=== PATIENT | male | born 1960 | race Caucasian/White ===

== ENCOUNTER 2021-05-31 15:09 | Day surgery (SDCO) | payer OTHER ==
[~2021-05-31] VITALS: Ht 172.7 cm; Wt 109.3 kg
[~2021-05-31 15:09] MED LIST: BLOOD PRESSURE1 EACH XX; CELEBREX **OUT100 MG PO; COREG12.5 MG PO; CRESTOR40 MG PO; CYCLOBENZAPRINE10 MG PO; CYMBALTA 30MG C30 MG PO; FLOMAX0.4 MG PO; GABAPENTIN600 MG PO; HYDROCHLOROTHIA25 MG PO; HYDROXYCHLOROQ200 MG PO; JANUMET 50-1,01 EACH PO; JANUVIA50 MG PO; MICRONASE PO; MICRONASE5 MG PO; NARCAN4 MG; NARCAN4 MG INH; NEXIUM20 MG PO; NORVASC10 MG PO; OXYCODON-ACETA1 EAC1 PO; OXYCODONE-ACET1 EAC1 PO; OXYCODONE-ACET1 EACH PO; PERCOCET 10-321 EACH PO; PLAVIX75 MG PO; PREDNISONE 20MG20 MG PO; TIZANIDINE HCL2 MG PO; TOPROL XL 25MG25 MG PO; UROCIT-K10 MEQ PO; VITAMIN B-121000 MC1 PO; VITAMIN C1000 M2 PO; VITAMIN D-32000 UNIT PO; VITAMIN E200 UNIT PO; VOLTAREN100 GM TOP; ZESTRIL5 MG PO
[2021-05-31 15:43] LABS: BASOPHIL 0.8 % (0-2); EOSINOPHIL 2.7 % (0-5); HGB 14.6 g/dl (13.2-18.0); LYMPHOCYTE 41.4 % (15-48); MCH 32.1 pg (25.0-31.0); MCV 94.5 fL (78.0-100.0); MONOCYTE 11.5 % (0-12); MPV 9.5 fL (6.0-9.5); NEUTROPHIL 43.6 % (41-80); NRBC 0; PLT 223 K/uL (150-400); RBC 4.55 M/uL (4.70-6.00); RDW 12.6 % (11.5-14.0); WBC 2.6 K/uL (4.0-10.5)
[2021-05-31 15:54] LABS: ALBUMIN 3.9 g/dL (3.4-5.0); BILIRUBIN - TOTAL 0.6 mg/dL (0.2-1.0); BUN/CREAT RATIO (CALC) 11.9 RATIO; CREATININE 1.09 mg/dL (0.67-1.17); POTASSIUM 4.2 mmol/L (3.5-5.1); TOTAL PROTEIN 6.9 g/dL (6.4-8.2)
[2021-05-31 16:32] LABS: CORONAVIRUS 2019 SARS-COV-2 NEGATIVE (NEGATIVE); INFLUENZA A NAA NEGATIVE (NEGATIVE)
[2021-05-31 19:23] LABS: BILIRUBIN 1+ mg/dL (NEGATIVE); BLOOD NEGATIVE Ery/uL (NEGATIVE); CLARITY CLEAR (CLEAR); COLOR YELLOW (YELLOW); GLUCOSE (U) 2+ mg/dL (NORMAL); LEUKOCYTES NEGATIVE Leu/uL (NEGATIVE); NITRITE NEGATIVE (NEGATIVE); PROTEIN TRACE (LOW) mg/dL (NEGATIVE); pH 6.5 (5.0-9.0)
[2021-05-31] MEDS ORDERED: GABAPENTIN600 MG PO (23:20)
[2021-05-31] MEDS ORDERED: TIZANIDINE HCL2 M1 PO (23:27)
[2021-05-31] MEDS ORDERED: METOCLOPRAMIDE H5 M1 PO (23:28)
[2021-05-31] MEDS ORDERED: GLYBURIDE2.5 MG PO (23:29)
[2021-05-31] MEDS ORDERED: JANUMET 50-5001 EACH PO (23:31)
[2021-05-31] MEDS ORDERED: CLOPIDOGREL75 MG PO (23:34)
[2021-05-31] MEDS ORDERED: ROSUVASTATIN CA20 MG PO (23:37)
[2021-05-31] MEDS ORDERED: MAG-OXIDE 400M400 MG PO (23:38)
[2021-06-01 06:49] LABS: BASOPHIL 0.4 % (0-2); EOSINOPHIL 1.8 % (0-5); HCT 37.5 % (42.0-52.0); HGB 12.6 g/dl (13.2-18.0); LYMPHOCYTE 42.9 % (15-48); MCH 31.8 pg (25.0-31.0); MCHC 33.6 g/dL (32.0-36.0); MCV 94.7 fL (78.0-100.0); MONOCYTE 11.5 % (0-12); MPV 9.4 fL (6.0-9.5); NRBC 0; PLT 180 K/uL (150-400); RBC 3.96 M/uL (4.70-6.00); RDW 12.6 % (11.5-14.0)
[2021-06-01 06:50] LABS: WBC 2.3 K/uL (4.0-10.5)
[2021-06-01 07:20] LABS: ALBUMIN 3.1 g/dL (3.4-5.0); BILIRUBIN - TOTAL 0.5 mg/dL (0.2-1.0); BUN/CREAT RATIO (CALC) 11.2 RATIO; CREATININE 0.89 mg/dL (0.67-1.17); GLOBULIN (CALCULATION) 2.4 g/dL; MAGNESIUM 1.6 mg/dL (1.8-2.4); POTASSIUM 3.7 mmol/L (3.5-5.1); TOTAL PROTEIN 5.5 g/dL (6.4-8.2)
[2021-06-02 06:05] LABS: BASOPHIL 0.7 % (0-2); EOSINOPHIL 2.5 % (0-5); HCT 39.2 % (42.0-52.0); LYMPHOCYTE 33.5 % (15-48); MCH 31.6 pg (25.0-31.0); MCHC 33.2 g/dL (32.0-36.0); MCV 95.1 fL (78.0-100.0); MONOCYTE 13.8 % (0-12); MPV 9.6 fL (6.0-9.5); NEUTROPHIL 49.1 % (41-80); NRBC 0; PLT 191 K/uL (150-400); RBC 4.12 M/uL (4.70-6.00); RDW 12.7 % (11.5-14.0); WBC 2.8 K/uL (4.0-10.5)
[2021-06-02 06:21] LABS: BUN/CREAT RATIO (CALC) 7.2 RATIO; CREATININE 0.97 mg/dL (0.67-1.17); MAGNESIUM 1.9 mg/dL (1.8-2.4); POTASSIUM 3.6 mmol/L (3.5-5.1)
--- NOTE | 2021-06-02 09:51 | NUR ---
06/02/21 Mr. Pearl lives at home with his spouse. He uses a cane on occasion. - PCP = Mykel Briceño NP.
[2021-06-03 06:20] LABS: BASOPHIL 0.4 % (0-2); EOSINOPHIL 4.2 % (0-5); HCT 38.6 % (42.0-52.0); HGB 12.9 g/dl (13.2-18.0); MCHC 33.4 g/dL (32.0-36.0); MCV 95.8 fL (78.0-100.0); MONOCYTE 12.3 % (0-12); MPV 9.5 fL (6.0-9.5); NEUTROPHIL 46.7 % (41-80); PLT 163 K/uL (150-400); RBC 4.03 M/uL (4.70-6.00); RDW 12.9 % (11.5-14.0); WBC 2.4 K/uL (4.0-10.5)
[2021-06-03 06:33] LABS: IRON % SATURATION 22.8 %SAT (20-50)
[2021-06-03 06:36] LABS: BUN/CREAT RATIO (CALC) 4.3 RATIO; CREATININE 0.93 mg/dL (0.67-1.17); MAGNESIUM 1.7 mg/dL (1.8-2.4); POTASSIUM 3.7 mmol/L (3.5-5.1)
[2021-06-03 06:42] LABS: LYMPHOCYTE(M) 39 % (15-48); MONOCYTE(M) 8 % (0-12); NEUTROPHILS(M) 53 % (41-80); PLATELET ESTIMATE NORMAL; TOTAL CELL COUNT 100
[2021-06-03 06:43] LABS: PLATELET MORPHOLOGY NORMAL
[2021-06-04 06:22] LABS: BASOPHIL 0.6 % (0-2); EOSINOPHIL 2.9 % (0-5); HCT 42.8 % (42.0-52.0); HGB 14.2 g/dl (13.2-18.0); LYMPHOCYTE 35.1 % (15-48); MCH 32.1 pg (25.0-31.0); MCHC 33.2 g/dL (32.0-36.0); MCV 96.8 fL (78.0-100.0); MONOCYTE 14.1 % (0-12); MPV 10.1 fL (6.0-9.5); NEUTROPHIL 47.3 % (41-80); NRBC 0; RBC 4.42 M/uL (4.70-6.00); RDW 12.8 % (11.5-14.0); WBC 3.1 K/uL (4.0-10.5)
[2021-06-04 06:30] LABS: BUN/CREAT RATIO (CALC) 3.8 RATIO; CREATININE 1.04 mg/dL (0.67-1.17); MAGNESIUM 1.9 mg/dL (1.8-2.4); POTASSIUM 4.3 mmol/L (3.5-5.1)
[2021-06-04 06:38] LABS: PLT 193 K/uL (150-400)
[2021-06-04] MEDS ORDERED: AMOXICILLIN500 MG PO (17:53)
[2021-06-04] MEDS ORDERED: PROTONIX 40MG T40 MG PO (17:53)
[2021-06-04] MEDS ORDERED: BIAXIN500 MG PO (17:53)
[2021-06-04] MEDS ORDERED: CARAFATE1 GM PO (17:53)
== END 2021-06-04 18:25 | disposition home or self-care (01) ==
LOC: FER 15:09 → FMS 20:38
PROVIDERS: Internal Medicine; Nurse Practitioner; Nurse Practitioner Family; ADMIT Internal Medicine
DX: K21.9 Gastro-esophageal reflux disease without esophagitis (principal); K29.60 Other gastritis without bleeding; K44.9 Diaphragmatic hernia without obstruction or gangrene; K22.2 Esophageal obstruction; K52.9 Noninfective gastroenteritis and colitis, unspecified; E86.0 Dehydration; R63.4 Abnormal weight loss; E83.42 Hypomagnesemia; D50.9 Iron deficiency anemia, unspecified; R00.0 Tachycardia, unspecified; I10 Essential (primary) hypertension; E11.40 Type 2 diabetes mellitus with diabetic neuropathy, unspecified; D72.819 Decreased white blood cell count, unspecified; K29.80 Duodenitis without bleeding; I95.1 Orthostatic hypotension; I25.10 Atherosclerotic heart disease of native coronary artery without angina pectoris; G47.33 Obstructive sleep apnea (adult) (pediatric); E78.5 Hyperlipidemia, unspecified; M19.90 Unspecified osteoarthritis, unspecified site; N40.0 Benign prostatic hyperplasia without lower urinary tract symptoms; R60.9 Edema, unspecified; Z79.1 Long term (current) use of non-steroidal anti-inflammatories (NSAID); Z87.19 Personal history of other diseases of the digestive system; Z90.49 Acquired absence of other specified parts of digestive tract; Z96.651 Presence of right artificial knee joint; Z95.5 Presence of coronary angioplasty implant and graft; Z96.641 Presence of right artificial hip joint; Z79.02 Long term (current) use of antithrombotics/antiplatelets; Z20.822 Contact with and (suspected) exposure to COVID-19
CPT/HCPCS: 36415; 70450; 78264; 80048; 80053; 81003; 82150; 83036; 83540; 83550; 83690; 83735; 83880; 84443; 84484; 85025; 85379; 88305; 93005; 97162; 97165; 97530-GP; A9541; C9113; G0378; J1170; J2405; J2550; J3475; J3480; J7030; J7120; Q9967; U0002

== ENCOUNTER 2021-11-19 16:45 | Emergency (ER) | payer OTHER ==
[~2021-11-19 16:45] MED LIST changes: +AMOXICILLIN500 MG PO; +BIAXIN500 MG PO; +CARAFATE1 GM PO; +CLOPIDOGREL75 MG PO; +GLYBURIDE2.5 MG PO; +JANUMET 50-5001 EACH PO; +MAG-OXIDE 400M400 MG PO; +METOCLOPRAMIDE H5 M1 PO; +OXYCODONE HCL10 MG PO; +OXYCODONE IR 5MG5 MG PO; +PROTONIX 40MG T40 MG PO; +ROSUVASTATIN CA20 MG PO; +TIZANIDINE HCL2 M1 PO
[2021-11-19 18:32] LABS: BASOPHIL 0.3 % (0-2); EOSINOPHIL 13.6 % (0-5); HCT 36.8 % (42.0-52.0); HGB 13.1 g/dl (13.2-18.0); LYMPHOCYTE 17.5 % (15-48); MCH 31.4 pg (25.0-31.0); MCHC 35.6 g/dL (32.0-36.0); MCV 88.2 fL (78.0-100.0); MONOCYTE 8.3 % (0-12); MPV 9.3 fL (6.0-9.5); NEUTROPHIL 59.4 % (41-80); NRBC 0; PLT 182 K/uL (150-400); RBC 4.17 M/uL (4.70-6.00); RDW 12.5 % (11.5-14.0)
[2021-11-19 18:41] LABS: BUN/CREAT RATIO (CALC) 7.1 RATIO; CREATININE 0.84 mg/dL (0.67-1.17)
[2021-11-19 18:47] LABS: CORONAVIRUS 2019 SARS-COV-2 NEGATIVE (NEGATIVE); INFLUENZA A NAA NEGATIVE (NEGATIVE)
[2021-11-19 18:52] LABS: POTASSIUM 4.3 mmol/L (3.5-5.1)
[2021-11-19] MEDS ORDERED: MUCINEX DM ER1 EACH PO (22:00)
[2021-11-19] MEDS ORDERED: LEVAQUIN750 MG PO (22:00)
== END 2021-11-19 22:45 | disposition home or self-care (01) ==
LOC: FER 16:45
PROVIDERS: Nurse Practitioner Family
DX: R06.2 Wheezing (principal); R05.9 Cough, unspecified; E87.1 Hypo-osmolality and hyponatremia; I10 Essential (primary) hypertension; E11.9 Type 2 diabetes mellitus without complications; E78.5 Hyperlipidemia, unspecified; K21.9 Gastro-esophageal reflux disease without esophagitis; Z20.822 Contact with and (suspected) exposure to COVID-19; Z79.02 Long term (current) use of antithrombotics/antiplatelets; Z79.84 Long term (current) use of oral hypoglycemic drugs; Z79.899 Other long term (current) drug therapy
CPT/HCPCS: 36415; 71046; 80048; 85025; 87880; U0002